=== PATIENT | female | born 1975 | race Caucasian/White ===

== ENCOUNTER 2025-03-05 10:21 | Outpatient (CLI) | payer OTHER, SELFPAY ==
--- NOTE | ~2025-03-05 | CT_ITS ---
EXAM/PROCEDURE: CT sinus wo con HISTORY: R09.82 - Postnasal drip COMPARISON: None available. TECHNIQUE: Paranasal sinus CT FINDINGS: Partial aspiration of the ethmoid air cells. Maxillary, frontal and sphenoid sinuses are fully aerated. No air-fluid level. Both ostiomeatal complexes are patent. Slight septal deviation to the left with moderate-sized spur along the left margin of the mid septum. The turbinates appear within normal limits. Bones soft tissues about the sinuses appear intact. IMPRESSION: Minimal paranasal sinus disease with no evidence of significant occlusion/obstruction of the ostiomeatal complexes or air-fluid level to confirm acute sinusitis. Reviewed, dictated and finalized at location A. [employer] IMPRESSION: Minimal paranasal sinus disease with no evidence of significant occlusion/obstr uction of the ostiomeatal complexes or air-fluid level to confirm acute sinusit is.
== END 2025-03-05 10:22 | disposition home or self-care (01) ==
PROVIDERS: PCP Family Medicine; Visit Provider Otolaryngology
DX: R09.82 Postnasal drip (principal); J31.0 Chronic rhinitis; R05.9 Cough, unspecified; J32.4 Chronic pansinusitis
CPT/HCPCS: 70486